=== PATIENT | female | born 1995 | race Caucasian/White ===

== ENCOUNTER 2020-05-26 13:23 | Observation (INO) | payer OTHER, SELFPAY ==
[2020-05-26] VITALS (7 sets, daily range): BP systolic 111–123; BP diastolic 70–86; PULSE 88–109; BMI 27.6
--- NOTE | 2020-05-26 16:00 | PM.OBTRLD ---
OB - Triage/Final Diagnosis Evaluation Vital signs: Vital Signs - 24 hr 05/26/20 13:56 05/26/20 14:00 05/26/20 14:15 Pulse Rate 109 H 104 H 92 Blood Pressure 120/86 123/83 112/76 05/26/20 14:30 05/26/20 14:45 05/26/20 15:00 Pulse Rate 99 88 97 Blood Pressure 121/81 111/79 120/86 05/26/20 15:15 Pulse Rate 90 Blood Pressure 121/70
--- NOTE | 2020-05-28 06:55 | PM.OBTRLD ---
OB - Triage/Final Diagnosis Visit Information Date of evaluation: 05/26/20 Reason for evaluation: threatened labor
== END 2020-05-26 16:05 | disposition home or self-care (01) ==
PROVIDERS: Admitting Provider Obstetrics & Gynecology; Visit Provider Obstetrics & Gynecology
DX: O47.9 False labor, unspecified (principal); Z3A.00 Weeks of gestation of pregnancy not specified
CPT/HCPCS: G0378; G0379

== ENCOUNTER 2020-05-29 06:02 | Inpatient (IN) | payer OTHER, SELFPAY ==
[2020-05-29] VITALS (81 sets, daily range): BP systolic 95–138; BP diastolic 41–91; PULSE 71–181; RESP 16; TEMP 36.5–37.6; O2SAT 95–99; BMI 27.1
[2020-05-29] MEDS: LACTATED RINGERS 1,000 ML 125 ML IV CONT ×3 (06:25→08:07)
--- NOTE | 2020-05-29 06:25 | PM.IMHP ---
H&P: HPI History of Present Illness Date/Time: 05/29/20 06:25 Chief complaint: induction of labor Narrative: Regina Figueredo is a 25 year old female Lilli whose last menstrual period was unknown EDC is 06/09/2020 at 3827 weeks gestation sac admitted for induction of labor. growth has dropped off and her babies in the 3rd percentile. 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 Review of Systems Review of Systems: All systems reviewed & are unremarkable except as noted in HPI and below Meds Home Medications and Allergies Home Medications Medication Instructions Recorded Confirmed Type valacyclovir [Valtrex] 500 mg PO DAILY 30 Days #30 tablet 05/26/20 Rx Exam Const: General: no acute distress Eyes: General: appearance normal, both eyes and all related structures Neck: Neck: supple and no JVD Thyroid: thyroid normal Resp: Effort & Inspection: normal respiratory effort Auscultation: clear to auscultation bilaterally Cardio: Rate: regular rate Rhythm: regular rhythm GI: Inspection: non-distended GI Palp: Yes Soft to palpation, No Tenderness to palpation present (GI) and No Guarding due to palpation present (GI) Auscultation: normal bowel sounds : General: Yes bladder normal to palpation Speculum Exam - Vagina: normal appearance of the vagina Speculum Exam - Cervix: Cervical os closed ( Cervix 3/90/1. AROM clear. FHTs were reassuring) Skin: General skin exam: no rashes or lesions noted Extrem: General: normal to inspection and no edema Psych: Mental Status: mental status grossly normal Affect: normal affect Assessment and Plan Additional Plan impression: 38 and half week with IUGR Plan: Medical induction of labor. Spontaneous vaginal delivery is expected. She has an epidural candidate
[2020-05-29 06:31] LABS: Basophils Absolute Auto 0.1 K/mm3 (0.0-0.1); Basophils Percent Auto 0.7 % (0.2-1.2); Eosinophils Absolute Auto 0.2 K/mm3 (0-0.3); Eosinophils Percent Auto 2.1 % (0-4.4); Hematocrit 33.1 % (37.0-47.0); Hemoglobin 10.7 g/dL (12.0-15.0); Immature Granulocyte Absolute 0.03 K/mm3 (0.00-0.031); Immature Granulocyte Percent A 0.4 % (0-0.5); Lymphocytes Absolute Auto 1.63 K/mm3 (0.9-3.2); Lymphocytes Percent Auto 19.7 % (18.3-44.2); Mean Corpuscular HGB Conc 32.3 g/dl (32-36); Mean Corpuscular Hemoglobin 26.5 pg (26-34); Mean Corpuscular Volume 81.9 fl (80-100); Mean Platelet Volume 11.6 fl (7.4-10.4); Monocytes Absolute Auto 0.6 K/mm3 (0.1-0.6); Monocytes Percent Auto 7.5 % (2.6-8.5); Neutrophils Absolute Auto 5.8 K/mm3 (1.3-6.7); Neutrophils Percent Auto 69.6 % (45.5-73.1); Platelet Count Result 240 k/mm3 (150-375); Red Blood Count 4.04 M/mm3 (4.2-5.4); Red Cell Distribution Width 15.2 % (11.5-14.5); White Blood Count 8.3 K/mm3 (4.5-10.0)
[2020-05-29] MEDS: OXYTOCIN 30 UNITS/NS 500 ML 30 UNITS/500 ML BAG 6 UNITS IV CONT (06:55)
[2020-05-29 07:14] LABS: Amphetamine Screen Urine Negative (Negative); Barbiturate Screen Urine Negative (Negative); Benzodiazepines Screen Urine Negative (Negative); Cannabinoid Screen Urine Positive (Negative); Cocaine Screen Urine Negative (Negative); Methadone Screen Urine Negative (Negative); Opiate Screen Urine Negative (Negative); Phencyclidine Screen Urine Negative (Negative)
--- NOTE | 2020-05-29 07:30 | LDADM ---
This patient, Regina Figueredo, was admitted to Labor/Delivery/Recovery 103 on 05/29/20 at 06:02. Plans for labor, pain management and were discussed with patient. Patient/family oriented to hospital policies and general routines including ID bracelet, bed and alarms, visiting hours, pain management, procedures, bathroom and other care routines, personal items, smoking policy, room service/diet and guest tray routines, security routines, and visiting hours. Patient/Family are encouraged to report perceived risks to care and to ask questions if they do not understand what they are told or what they should do. See OBIX for further documentation.
--- NOTE | 2020-05-29 07:42 | WPDANESEPPF ---
Anes - Initial Pre Proc Eval Date/Time: 05/29/20 07:42 Surgeon: Sanchez Perez MD Pre Op Diagnosis: induction of labor Patient Data Age: 25 Gender: F Height: 1.5 m Weight: 61 kg Last Vital Signs Pulse 89 05/29/20 07:31 BP 115/78 05/29/20 07:31 Home Medications Medication Instructions Recorded Confirmed Type valacyclovir [Valtrex] 500 mg PO DAILY 30 Days #30 tablet 05/26/20 Rx Laboratory Tests 05/29/20 05/29/20 05/29/20 06:26 06:26 06:26 WBC 8.3 K/mm3 K/mm3 (4.5-10.0) RBC 4.04 M/mm3 L M/mm3 (4.2-5.4) Hgb 10.7 g/dL L g/dL (12.0-15.0) Hct 33.1 % L % (37.0-47.0) MCV 81.9 fl fl (80-100) MCH 26.5 pg pg (26-34) MCHC 32.3 g/dl g/dl (32-36) RDW 15.2 % H % (11.5-14.5) Plt Count 240 k/mm3 k/mm3 (150-375) MPV 11.6 fl H fl (7.4-10.4) Immature Gran % (Auto) 0.4 % % (0-0.5) Neut % (Auto) 69.6 % % (45.5-73.1) Lymph % (Auto) 19.7 % % (18.3-44.2) [place] % (Auto) 7.5 % % (2.6-8.5) Eos % (Auto) 2.1 % % (0-4.4) Baso % (Auto) 0.7 % % (0.2-1.2) Lymph # (Auto) 1.63 K/mm3 K/mm3 (0.9-3.2) [place] # (Auto) 0.6 K/mm3 K/mm3 (0.1-0.6) Eos # (Auto) 0.2 K/mm3 K/mm3 (0-0.3) Baso # (Auto) 0.1 K/mm3 K/mm3 (0.0-0.1) Abs Immat Gran (auto) 0.03 K/mm3 K/mm3 (0.00-0.031) Absolute Neuts (auto) 5.8 K/mm3 K/mm3 (1.3-6.7) Absolute Nucleated RBC 0.0 K/mm3 K/mm3 (0.0-0.012) Nucleated RBC % 0.0 % % (0.0-0.2) Urine Opiates Screen Urine Methadone Screen Ur Barbiturates Screen Ur Phencyclidine Scrn Ur Amphetamine Screen U Benzodiazepines Scrn Urine Cocaine Screen U Cannabinoids Screen RPR Pending Blood Type Pending Antibody Screen Pending 05/29/20 06:41 WBC RBC Hgb Hct MCV MCH MCHC RDW Plt Count MPV Immature Gran % (Auto) Neut % (Auto) Lymph % (Auto) [place] % (Auto) Eos % (Auto) Baso % (Auto) Lymph # (Auto) [place] # (Auto) Eos # (Auto) Baso # (Auto) Abs Immat Gran (auto) Absolute Neuts (auto) Absolute Nucleated RBC Nucleated RBC % Urine Opiates Screen Negative (Negative) Urine Methadone Screen Negative (Negative) Ur Barbiturates Screen Negative (Negative) Ur Phencyclidine Scrn Negative (Negative) Ur Amphetamine Screen Negative (Negative) U Benzodiazepines Scrn Negative (Negative) Urine Cocaine Screen Negative (Negative) U Cannabinoids Screen Positive A (Negative) RPR Blood Type Antibody Screen Patient hx anesthesia problems: none Family hx anesthesia problems: none [facility] Social History Social History Years smoked: 16 Smoking status: Current every day smoker Tobacco type: cigarettes Second hand tobacco smoke exposure: Yes Anes - Eval Final PreProcedure Day of Procedure 05/29/20 07:42 Patient weight: overweight Heart: regular rate and rhythm Lungs: clear to auscultation and normal air movement Airway: Mallampati scale class II Neurological: alert and oriented Last oral intake: >/= 8 hours ASA classification: II Emergent: no Anesthetic plan: proceed Anesthesia type and monitoring: regional epidural Informed Consent: The patient's anesthetic plan and its attendant risks and benefits were discussed with the patient/family/POA. Questions were solicited and answers provided to the satisfaction of the patient/family/POA.
[2020-05-29] MEDS: fentaNYL CITRATE INJ (*CRX) 100 MCG/2 ML VIAL 50 MCG IV PUSH (07:47)
--- NOTE | 2020-05-29 12:14 | PM.OBPNVD ---
OB - PN: Subj Subjective Date/time seen: 05/29/20 12:14 cx 6 by rn exam. fhts ok iupc/epidural in OB - PN: Obj Data Labs CBC & Chem 7: 05/29/20 06:26 Labs: Laboratory Results - last 24 hr 05/29/20 05/29/20 05/29/20 06:26 06:26 06:41 WBC 8.3 RBC 4.04 L Hgb 10.7 L Hct 33.1 L MCV 81.9 MCH 26.5 MCHC 32.3 RDW 15.2 H Plt Count 240 MPV 11.6 H Immature Gran % (Auto) 0.4 Neut % (Auto) 69.6 Lymph % (Auto) 19.7 [place] % (Auto) 7.5 Eos % (Auto) 2.1 Baso % (Auto) 0.7 Lymph # (Auto) 1.63 [place] # (Auto) 0.6 Eos # (Auto) 0.2 Baso # (Auto) 0.1 Abs Immat Gran (auto) 0.03 Absolute Neuts (auto) 5.8 Absolute Nucleated RBC 0.0 Nucleated RBC % 0.0 Urine Opiates Screen Negative Urine Methadone Screen Negative Ur Barbiturates Screen Negative Ur Phencyclidine Scrn Negative Ur Amphetamine Screen Negative U Benzodiazepines Scrn Negative Urine Cocaine Screen Negative U Cannabinoids Screen Positive A Blood Type A Positive Antibody Screen Negative OB - PN A/P Time Spent With Patient Time: Total time spent is greater than 50% in coordination of care (as documented) at patient's floor/unit and/or counseling patient:
[2020-05-29] MEDS: ONDANSETRON INJ 4 MG/2 ML VIAL IV PUSH (12:57)
--- NOTE | 2020-05-29 17:52 | PM.OBPRVD ---
OB - Delivery Note Procedure Delivery date: 05/29/20 Procedure: mil/ events: Labor Induction (iugr) Intrapartal events: None Induction method: AROM Delivery augmentation: rupture of membranes Delivery monitor: external FHT Route of delivery: Episiotomy description: None Laceration Description: None Specimen: No Estimated blood loss (mL): 57 Anesthesia type: Epidural Disposition: floor [place] Baby Date of : 05/29/20 Time of : 17:40 Weeks of gestation at delivery: 38 Infant gender: Female Weight (pounds): 5 Weight (ounces): 12 presentation: vertex position: Right Occiput Anterior Placenta delivery description: Spontaneous cord vessel description: 3 Vessels score one minute: 8 score five minutes: 9
[2020-05-29] MEDS: OXYTOCIN 30 UNITS/NS 500 ML 30 UNITS/500 ML BAG 125 UNITS IV CONT (18:18)
[2020-05-29] MEDS: LORATADINE 10 MG TABLET PO (19:14)
[2020-05-29] MEDS: WITCH HAZEL 40 PADS 1 PAD TOPICAL (19:58)
[2020-05-29] MEDS: BENZOCAINE 20% AER SPR (*SP) 56 GM CAN 1 SPRAY TOPICAL (19:58)
[2020-05-29] MEDS: DIBUCAINE 1% OINTMENT 30 GM TUBE 1 APPLIC TOPICAL (19:59)
--- NOTE | 2020-05-29 20:15 | OBPPTRN ---
Patient transferred to post room 292 via wheelchair. Support person present. Oriented to unit, room, information board, rooming in, admission packet and security measures. Patient verbalizes understanding.
[2020-05-30 05:42] LABS: Hematocrit 28.3 % (37.0-47.0); Hemoglobin 9.1 g/dL (12.0-15.0)
--- NOTE | 2020-05-30 06:47 | P.DS_ITS ---
DS: Admitting Diagnosis Admitting Diagnosis Admitting Diagnosis: induction of labor term/iugr DS: Summary Time Spent with Patient Time attestation: Total time spent providing and/or coordinating discharge services: The patient was admitted for induction of labor secondary to IUGR. Ultrasound had shown baby in the 3rd percentile for growth. Her hospital course was unremarkable. She had an unremarkable delivery. Her 24hour stay was unremarkable she her condition upon discharge was stable Exam Const: General: no acute distress Eyes: General: appearance normal, both eyes and all related structures Neck: Neck: supple and no JVD Thyroid: thyroid normal Resp: Effort & Inspection: normal respiratory effort Auscultation: clear to auscultation bilaterally Cardio: Rate: regular rate Rhythm: regular rhythm GI: Inspection: non-distended GI Palp: Yes Soft to palpation, No Tenderness to palpation present (GI) and No Guarding due to palpation present (GI) Auscultation: normal bowel sounds : General: Yes bladder normal to palpation External Female Exam: normal external appearance Speculum Exam - Vagina: normal vaginal discharge and No vaginal bleeding Speculum Exam - Cervix: nontender Bimanual exam- vagina & uterus: bladder normal to palpation and No Cervical tenderness present OB/external & speculum: No vaginal bleeding Skin: General skin exam: no rashes or lesions noted Extrem: General: normal to inspection and no edema Psych: Mental Status: mental status grossly normal Affect: normal affect DS: Data Data Completed and Pending Labs on day of discharge: Labs from last 24 hours 05/30/20 05/29/20 05/29/20 05:11 06:41 06:26 Hgb 9.1 L Hct 28.3 L Urine Opiates Screen Negative Urine Methadone Screen Negative Ur Barbiturates Screen Negative Ur Phencyclidine Scrn Negative Ur Amphetamine Screen Negative U Benzodiazepines Scrn Negative Urine Cocaine Screen Negative U Cannabinoids Screen Positive A Blood Type A Positive Antibody Screen Negative Discharge Plan Discharge Attending physician on discharge: Sanchez Perez Discharging Clinician: Sanchez Perez Patient Disposition: Home, Self-Care Activity: may shower, no straining and pelvic rest Diet: heart healthy Wound Care Instructions: follow printed instructions Patient Instructions: Antibiotic Form Stand Alone Forms: General Discharge Information Follow-up/Referrals: Sanchez Perez MD [Physician] - Discharge Medications: Continued valacyclovir [Valtrex] 500 mg Tablet 500 mg PO DAILY 30 Days Qty: 30 RF: 0 Date of admission: 05/29/20 06:02 Primary Care Provider: PHYSICIAN,[employer] Admitting Provider: Sanchez Perez Attending physician on admission: Sanchez Perez
--- NOTE | 2020-05-30 06:49 | PM.OBPNVD ---
OB - PN: Subj Subjective Date/time seen: 05/30/20 06:49 Patient comments: no complaints and pain well controlled baby status: doing well OB - PN: Obj Data Labs CBC & Chem 7: 05/30/20 05:11 Labs: Laboratory Results - last 24 hr 05/29/20 05/29/20 05/30/20 06:26 06:41 05:11 Hgb 9.1 L Hct 28.3 L Urine Opiates Screen Negative Urine Methadone Screen Negative Ur Barbiturates Screen Negative Ur Phencyclidine Scrn Negative Ur Amphetamine Screen Negative U Benzodiazepines Scrn Negative Urine Cocaine Screen Negative U Cannabinoids Screen Positive A Blood Type A Positive Antibody Screen Negative OB - PN A/P Plan day: 1 Plan: routine care, discharge home and follow up 6 weeks Time Spent With Patient Time: Total time spent is greater than 50% in coordination of care (as documented) at patient's floor/unit and/or counseling patient: Time with patient: less than 15 minutes Review of Systems Review of Systems: All systems reviewed & are unremarkable except as noted in HPI and below Exam Const: General: no acute distress Eyes: General: appearance normal, both eyes and all related structures Neck: Neck: supple and no JVD Thyroid: thyroid normal Resp: Effort & Inspection: normal respiratory effort Auscultation: clear to auscultation bilaterally Cardio: Rate: regular rate Rhythm: regular rhythm GI: Inspection: non-distended GI Palp: Yes Soft to palpation, No Tenderness to palpation present (GI) and No Guarding due to palpation present (GI) Auscultation: normal bowel sounds : General: Yes bladder normal to palpation External Female Exam: normal external appearance Speculum Exam - Vagina: normal vaginal discharge and No vaginal bleeding Speculum Exam - Cervix: nontender Bimanual exam- vagina & uterus: bladder normal to palpation and No Cervical tenderness present OB/external & speculum: No vaginal bleeding Skin: General skin exam: no rashes or lesions noted Extrem: General: normal to inspection and no edema Psych: Mental Status: mental status grossly normal Affect: normal affect
--- NOTE | 2020-05-30 07:01 | WPDANLDPN2 ---
Anes-Prog Note L&D Date/Time: 05/30/20 07:01 Comfortable throughout: labor and delivery Neuraxial method: epidural Epidural/Spinal procedure site: clean & non-tender Neuro status: Neuro function grossly intact. Cardiovascular status: normal Respiratory status: normal Airway patency: baseline Mental status: baseline Post-Op hydration status: normal Vital Signs: Last Vital Signs Temp 37.2 C 05/29/20 20:15 Pulse 80 05/29/20 20:15 Resp 16 05/29/20 20:15 BP 124/66 05/29/20 20:15 Pulse Ox 99 05/29/20 20:15 Pain score (VAS): 08/17 I/O: Intake & Output 05/29/20 05/29/20 05/30/20 15:59 23:59 07:59 Intake Total 1000 1000 Output Total 30 Balance 1000 970 Post-procedural complaints: none Patient feedback: Patient satisfied with anesthetic care.
[2020-05-30 07:40] VITALS: BP 104/53; PULSE 81; RESP 18; TEMP 37.1; O2SAT 100
[2020-05-30] MEDS: DOCUSATE SODIUM 100 MG CAPSULE PO ×2 (07:55→17:43)
[2020-05-30] MEDS: IBUPROFEN 600 MG TABLET PO ×2 (07:55→17:43)
[2020-05-30] MEDS: POLYSACCHARIDE IRON COMPLEX 150 MG CAPSULE PO ×2 (07:55→17:43)
[2020-05-30 09:32] LABS: Rapid Plasma Reagin Non-Reactive (NonReactive)
--- NOTE | 2020-05-30 12:52 | PCCCNOTE ---
SS Note. Received referral for positive THC and amphetamines during . Met with pt. and her mother at bedside. Pt. confirms consistent use of THC to stimulate appetite. She confirms stopping use of amphetamines once known. She reports having no other children and no history with DCFS involvement. Report made to DCFS; pt. situation will be taken as information and meets criteria for a Child Welfare Referral to offer services/provide support to the involved family. Intake ID [id number]. Pt. plans to return home with her mother and father along with when discharged. Her parents are supportive and she has all needed items to care for at discharge. She is current with [facility]. She indicates that Father of Baby is also involved and supportive. Offered additional resources and she accepted same. Encouraged she contact any/all of interest. Nursing aware of above and have no further concerns. No other SS needs indicated at this time.
[2020-05-30 19:30] VITALS: BP 117/77; PULSE 97; RESP 16; TEMP 36.6
--- NOTE | 2020-05-31 06:33 | PM.OBPNVD ---
OB - PN: Subj Subjective Date/time seen: 05/31/20 06:33 Patient comments: no complaints and pain well controlled baby status: doing well OB - PN: Obj Data Labs CBC & Chem 7: 05/30/20 05:11 Labs: Laboratory Results - last 24 hr 05/29/20 06:26 RPR Non-reactive OB - PN A/P Plan day: 2 Plan: routine care, discharge home and follow up 6 weeks Time Spent With Patient Time: Total time spent is greater than 50% in coordination of care (as documented) at patient's floor/unit and/or counseling patient: Time with patient: less than 15 minutes Review of Systems Review of Systems: All systems reviewed & are unremarkable except as noted in HPI and below Exam Const: General: no acute distress Eyes: General: appearance normal, both eyes and all related structures Neck: Neck: supple and no JVD Thyroid: thyroid normal Resp: Effort & Inspection: normal respiratory effort Auscultation: clear to auscultation bilaterally Cardio: Rate: regular rate Rhythm: regular rhythm GI: Inspection: non-distended GI Palp: Yes Soft to palpation, No Tenderness to palpation present (GI) and No Guarding due to palpation present (GI) Auscultation: normal bowel sounds : General: Yes bladder normal to palpation External Female Exam: normal external appearance Speculum Exam - Vagina: normal vaginal discharge and No vaginal bleeding Speculum Exam - Cervix: nontender Bimanual exam- vagina & uterus: bladder normal to palpation and No Cervical tenderness present OB/external & speculum: No vaginal bleeding Skin: General skin exam: no rashes or lesions noted Extrem: General: normal to inspection and no edema Psych: Mental Status: mental status grossly normal Affect: normal affect
--- NOTE | 2020-05-31 06:33 | PM.DS ---
DS: Admitting Diagnosis Admitting Diagnosis Admitting Diagnosis: induction of labor the patient was admitted for induction of labor. She underwent a spontaneous vaginal delivery. Her hospital course was unremarkable. DS: Summary Time Spent with Patient Time attestation: Total time spent providing and/or coordinating discharge services: Exam Const: General: no acute distress Eyes: General: appearance normal, both eyes and all related structures Neck: Neck: supple and no JVD Thyroid: thyroid normal Resp: Effort & Inspection: normal respiratory effort Auscultation: clear to auscultation bilaterally Cardio: Rate: regular rate Rhythm: regular rhythm GI: Inspection: non-distended GI Palp: Yes Soft to palpation, No Tenderness to palpation present (GI) and No Guarding due to palpation present (GI) Auscultation: normal bowel sounds : General: Yes bladder normal to palpation External Female Exam: normal external appearance Speculum Exam - Vagina: normal vaginal discharge and No vaginal bleeding Speculum Exam - Cervix: nontender Bimanual exam- vagina & uterus: bladder normal to palpation and No Cervical tenderness present OB/external & speculum: No vaginal bleeding Skin: General skin exam: no rashes or lesions noted Extrem: General: normal to inspection and no edema Psych: Mental Status: mental status grossly normal Affect: normal affect DS: Data Data Completed and Pending Labs on day of discharge: Labs from last 24 hours 05/29/20 06:26 RPR Non-reactive Discharge Plan Discharge Attending physician on discharge: Sanchez Perez Consulting providers: Antonio Deleon Discharging Clinician: Sanchez Perez Patient Disposition: Home, Self-Care Activity: may shower, no straining and pelvic rest Diet: heart healthy Wound Care Instructions: follow printed instructions Discharge Instructions: Education: Mom and Baby Guide Given to: Mother Follow-Up: Call your delivering provider's office for an appointment to be seen in: 6 Weeks Mom and baby should come to the [facility] for the follow-up appointment. Appointment Date/Time: Tuesday, June 02, 2020 at 11:00 a.m. What to expect at your follow-up visit: Blood Pressure Check Physical Assessment Call [phone] if you are unable to keep your appointment time. BREAST CARE: * Wear a snug supportive bra. * For engorgement discomfort: Bottle Feeding: * May apply ice packs EPISIOTOMY/PERINEAL CARE: * Until bleeding stops, use your karishma bottle after urinating * Change your pad frequently throughout the day * You may take sitz baths several times a day (fill your bathtub with warm water and soak for 20 minutes.) Do NOT bathe in the water * No tub baths until seen by your physician - You may shower ACTIVITY: * Rest as much as possible. * Do not exercise or lift anything heavier than your baby (such as laundry or other children.) * Avoid stairs or driving as much as possible. * Do not put anything into the vagina. No douching, tampons, or sexual activity until seen by physician. NOTIFY PHYSICIAN IF YOU HAVE ANY QUESTIONS OR IF ANY OF THE FOLLOWING SYMPTOMS OCCUR: * If your vaginal bleeding becomes foul smelling. * If your vaginal bleeding becomes more heavy than a period or if your bleeding changes from pink to bright red. However, you may pass an occasional walnut-sized clot once or twice for the first week . * If you experience a sharp, shooting pain in you calves. DIET: * Eat regular, well-balanced meals. * Drink plenty of fluids daily. Patient Instructions: How to Stop Smoking (DC) Stand Alone Forms: General Discharge Information Follow-up/Referrals: Sanchez Perez MD [Physician] - Discharge Medications: Continued valacyclovir [Valtrex] 500 mg Tablet 500 mg PO DAILY 30 Days Qty: 30 RF: 0 Date of admission: 05/29/20
[2020-05-31 07:40] VITALS: BP 120/79; PULSE 79; RESP 16; TEMP 36.7; O2SAT 99
[2020-05-31] MEDS: TETANUS,DIPHTHERIA,AC PERTUSSIS ADULT (0.5 ML) BOOSTRIX IM (07:45)
[2020-05-31] MEDS: POLYSACCHARIDE IRON COMPLEX 150 MG CAPSULE PO (07:46)
[2020-05-31] MEDS: DOCUSATE SODIUM 100 MG CAPSULE PO (07:46)
[2020-05-31] MEDS: IBUPROFEN 600 MG TABLET PO (07:47)
--- NOTE | 2020-05-31 07:56 | PC.NURSE ---
RN administered TDAP vaccine 05/31/20 at 0747.
--- NOTE | 2020-05-31 08:11 | PC.NURSE ---
Patient viewed the discharge video Mother & Baby Care, The First Two Weeks . Patient was given the opportunity and encouraged to ask questions. Patient verbalized understanding of information shared and has been given the mother/baby guide for home reference.
[2020-05-31] MEDS: ACETAMINOPHEN 325 MG TABLET 650 MG PO (11:55)
[2020-06-02 10:49] VITALS: BP 121/86; PULSE 83; RESP 20; TEMP 37.3; O2SAT 99
== END 2020-05-31 12:15 | disposition home or self-care (01) | DRG 560 ==
LOC: ANHLDR 06:06 → ANHOB2 20:26
PROVIDERS: Admitting Provider Obstetrics & Gynecology; Visit Provider Obstetrics & Gynecology
DX: O36.5930 Maternal care for other known or suspected poor fetal growth, third trimester, not applicable or unspecified (principal); O98.52 Other viral diseases complicating childbirth; B00.9 Herpesviral infection, unspecified; O76 Abnormality in fetal heart rate and rhythm complicating labor and delivery; Z3A.38 38 weeks gestation of pregnancy; Z37.0 Single live birth; O99.334 Smoking (tobacco) complicating childbirth; F17.210 Nicotine dependence, cigarettes, uncomplicated; Z23 Encounter for immunization
CPT/HCPCS: 36415; 80307; 85014; 85018; 85025; 86592; 86850; 86900; 86901; 90471; 90653; 90715; A9270; G0008; J2405; J2590; J2795; J3010; J7120